=== PATIENT | female | born 1990 | race Caucasian/White ===

== ENCOUNTER 2022-09-10 11:33 | Emergency (ER) | payer OTHER ==
[~2022-09-10] VITALS: Ht 162.6 cm; Wt 72.6 kg
[2022-09-10 11:37] VITALS: BP 133/95
--- NOTE | 2022-09-10 11:44 | NUR ---
PT AMBULATED TO BED 3
--- NOTE | 2022-09-10 11:45 | NUR ---
PT RECEIVED, CARE ASSUMED. PT A/OX4. PT PRESENTS SELF TO ER WITH C/O GEN BODY ACHES, GEN BODY BRUSING. NO DEFORMATIES. PT IN ROOM AWAITNG TO BE SEEN BY
[2022-09-10] MEDS ORDERED: KETOROLAC 30 MG/ML VIAL IM ONE (12:05)
[2022-09-10] MEDS ORDERED: BACITRACIN OINT 500 UNITS/GM PKT TP ONE (12:05)
[2022-09-10] MEDS ORDERED: AMOX1TAB8 PO (12:14)
[2022-09-10] MEDS ORDERED: IBUP-2213 PO (12:14)
[2022-09-10] MEDS ORDERED: BACI-416 TP (12:14)
--- NOTE | 2022-09-10 13:06 | NUR ---
R WRIST SPLINT APPLIED TO R WRIST. + CMS. SHORT FINGER SPLINTS APPLIED TO R PINKY, R RING FINGER. + CMS. PT TOLERATED SPLINTS.
[2022-09-10] MEDS ORDERED: ACET-8905 PO (13:11)
--- NOTE | 2022-09-10 13:20 | NUR ---
Patient discharged with v/s stable. Written and verbal after care instructions given and explained. Patient alert, oriented and verbalized understanding of instructions. Ambulatory with steady gait. All questions addressed prior to discharge. ID band removed. Patient advised to follow up with PMD. Rx of AUGMENTIN, MOTRIN, NORCO given. Patient educated on indication of medication including possible reaction and side effects. Opportunity to ask questions provided and answered.
== END 2022-09-10 13:15 | disposition home or self-care (01) ==
LOC: MED 11:33
DX: S60.221A Contusion of right hand, initial encounter (principal); S50.12XA Contusion of left forearm, initial encounter; R03.0 Elevated blood-pressure reading, without diagnosis of hypertension; W54.0XXA Bitten by dog, initial encounter; Y93.89 Activity, other specified; Y92.89 Other specified places as the place of occurrence of the external cause; Y99.8 Other external cause status
CPT/HCPCS: 29125; 72040; 73090; 73110; 73130; 90715; 96372; 99284; J1885